=== PATIENT | male | born 2005 | race Two or more races ===

== ENCOUNTER 2024-11-29 16:53 | Emergency (ER) | payer OTHER ==
[~2024-11-29] VITALS: Ht 180.3 cm; Wt 59.4 kg
[2024-11-29 18:02] VITALS: BP 116/75; TEMP 97.7; O2SAT 100
== END 2024-11-29 18:03 | disposition home or self-care (01) ==
LOC: ER 17:03
DX: M94.0 Chondrocostal junction syndrome [Tietze] (principal); M25.562 Pain in left knee; V49.40XA Driver injured in collision with unspecified motor vehicles in traffic accident, initial encounter; Y93.89 Activity, other specified; Y92.410 Unspecified street and highway as the place of occurrence of the external cause; Y99.8 Other external cause status
CPT/HCPCS: 71045-TC